=== PATIENT | female | born 1940 | race Two or more races ===

== ENCOUNTER → 2017-12-22 | Emergency (ER) | payer OTHER ==
[~2017-12-22] VITALS: Ht 160 cm; Wt 57.6 kg
[~2017-12-22] MED LIST: AZELASTINE137 MCG/0.; SINGULAIR10 MG; SYNTHROID125 MCG; XYZAL5 MG
== END | disposition home or self-care (01) ==
LOC: ER 14:14
DX: R04.0 Epistaxis (principal); D69.8 Other specified hemorrhagic conditions

== ENCOUNTER 2020-11-13 10:32 | Emergency (ER) | payer OTHER ==
[~2020-11-13] VITALS: Ht 165.1 cm; Wt 730.3 kg
[2020-11-13] MEDS ORDERED: VOLTAREN-XR100 MG PO (15:38)
[2020-11-13] MEDS ORDERED: ULTRAM50 MG PO (15:38)
[2020-11-13] MEDS ORDERED: SKELAXIN800 MG PO (15:38)
== END 2020-11-13 20:30 | disposition home or self-care (01) ==
LOC: ER 10:32
DX: S73.191A Other sprain of right hip, initial encounter (principal); X50.0XXA Overexertion from strenuous movement or load, initial encounter; Y93.01 Activity, walking, marching and hiking; Y92.89 Other specified places as the place of occurrence of the external cause; Y99.8 Other external cause status

== ENCOUNTER 2025-06-19 09:29 | Emergency (ER) | payer OTHER ==
[~2025-06-19] VITALS: Ht 160 cm; Wt 57.2 kg
[~2025-06-19 09:29] MED LIST changes: -COZAAR25 MG PO
[2025-06-19] MEDS ORDERED: COZAAR25 MG PO ×2 (10:28→13:17)
[2025-06-19] MEDS ORDERED: NIFEDIPINE 10 MG CAPSULE PO ONE (11:45)
[2025-06-19 12:17] LABS: BASO % 0.4 % (0.1-1.2); EOS # 0.05 (0.04-0.54); EOS % 0.6 % (0.7-7.0); LYMPH # 2.82 (1.18-3.74); LYMPH % 35.9 % (19.3-53.1); MEAN PLATELET VOLUME 9.80 fl (9.4-12.4); MONO # 0.57 (0.24-0.82); MONO % 7.3 % (4.7-12.5); NEUT # 4.38 (1.56-6.13); NEUT % 55.8 % (34.0-71.1); RED CELL DISTRIBUTION WIDTH 13.2 % (11.6-14.4)
[2025-06-19] MEDS ORDERED: KETOROLAC TROMETHAMINE 30 MG VIAL IM ONE (12:30)
== END 2025-06-19 13:58 | disposition home or self-care (01) ==
LOC: ER 09:29
PROVIDERS: General Practice
DX: I10 Essential (primary) hypertension (principal)
CPT/HCPCS: 36415; 71045; 93005; 96372; 99283; J1885

== ENCOUNTER → 2025-06-19 | Day surgery (SDC) | payer OTHER ==
[2025-06-16 13:27] VITALS: BP 180/90
[~2025-06-19] VITALS: Ht 160 cm; Wt 57.2 kg
[~2025-06-19] MED LIST changes: +COZAAR25 MG PO; +HORIZANT300 MG; +SKELAXIN800 MG PO; +SYNTHROID75 MCG; +ULTRAM50 MG PO; +VOLTAREN-XR100 MG PO; +allegra
== END | disposition home or self-care (01) ==
LOC: ADM 06-16 11:30 → CIR.AMB 06:20
PROVIDERS: ATTEND Obstetrics & Gynecology Gynecology
DX: N84.0 Polyp of corpus uteri (principal); I10 Essential (primary) hypertension; Z53.09 Procedure and treatment not carried out because of other contraindication